=== PATIENT | female | born 1995 | race Caucasian/White ===

== ENCOUNTER 2019-01-19 10:22 | Outpatient (CLI) | payer MEDICAID | END 2019-01-19 12:10 | disposition home or self-care (01) | LOC: OBT 10:22 → L-D 10:22 → OBT 12:10 | DX: O48.0 Post-term pregnancy (principal); Z3A.40 40 weeks gestation of pregnancy | CPT/HCPCS: 76815; 76818 ==

== ENCOUNTER 2019-01-22 11:09 | Inpatient (IN) | payer MEDICAID ==
[2019-01-22] MEDS ORDERED: BUTORPHANOL 2 MG INJ IV (18:00)
[2019-01-22] MEDS ORDERED: OXYCODONE/ASPIRIN (4.88/325) TAB PO (18:00)
[2019-01-22] MEDS ORDERED: CARBOPROST 250 MCG INJ IM (18:00)
[2019-01-22] MEDS ORDERED: IBUPROFEN 600 MG TAB PO (18:00)
[2019-01-22] MEDS ORDERED: MISOPROSTOL 200 MCG TAB PR (18:00)
[2019-01-22] MEDS ORDERED: METHYLERGONOVINE 0.2 MG INJ IM (18:00)
[2019-01-22] MEDS ORDERED: OXYTOCIN 30 UNITS/LR 500 ML IV ×3 (18:00)
[2019-01-22] MEDS ORDERED: LIDOCAINE 1% (MPF) 30 ML INJ INJ (18:00)
[2019-01-22] MEDS: LACTATED RINGER'S 1,000 ML IV (19:23)
[2019-01-22 19:53] LABS: ADD MAN DIFF? NO
[2019-01-22 19:56] LABS: WHITE BLOOD COUNT 8.3 10^3/ul (4.8-10.8)
[2019-01-22 19:56] LABS: BASOPHILS % 0.2 % (0.0-2.0); EOSINOPHILS % 0.5 % (0.0-7.0); HEMATOCRIT 35.7 % (37.0-47.0); HEMOGLOBIN 11.7 g/dl (12.0-16.0); LYMPHOCYTES # 1.5 10^3/ul (0.8-2.9); LYMPHOCYTES % 18.2 % (15.0-51.0); MEAN CORPUSCULAR HEMOGLOBIN 29.9 pg (29.0-33.0); MEAN CORPUSCULAR HGB CONC 32.8 g/dl (32.0-37.0); MEAN CORPUSCULAR VOLUME 91.3 fl (82.0-101.0); MEAN PLATELET VOLUME 10.7 fl (7.4-10.4); MONOCYTE # 0.5 10^3/ul (0.3-0.9); MONOCYTES % 6.5 % (0.0-11.0); NEUTROPHILS % 72.4 % (39.0-77.0); PLATELET COUNT 262 10^3/UL (140-415); RED BLOOD COUNT 3.91 10^6/ul (4.20-5.40); RED CELL DISTRIBUTION WIDTH 13.7 % (11.5-14.5)
[2019-01-22 20:15] LABS: INR 0.92; PARTIAL THROMBOPLASTIN TIME 28.5 Sec (23.0-35.0); PROTIME 12.5 Sec (11.9-14.9)
[2019-01-22] MEDS: MISOPROSTOL 50 MCG CAPSULE PO (21:44)
[2019-01-23] MEDS: LACTATED RINGER'S 1,000 ML IV ×3 (01:53→17:31)
[2019-01-23] MEDS: MISOPROSTOL 50 MCG CAPSULE PO ×4 (01:53→21:15)
[2019-01-23] MEDS ORDERED: ACETAMINOPHEN 325 MG TAB PO (03:00)
[2019-01-23 16:33] LABS: RAPID PLASMA REAGIN NONREACTIVE (NR)
[2019-01-24] MEDS: BUTORPHANOL 2 MG INJ IV (00:45)
[2019-01-24] MEDS: LACTATED RINGER'S 1,000 ML IV ×4 (00:45→20:40)
[2019-01-24] MEDS: MISOPROSTOL 50 MCG CAPSULE PO (01:56)
[2019-01-24] MEDS ORDERED: FENTAnyl 2MCG/ML-ROPIV 0.2% 100 ML (07:09)
[2019-01-24] MEDS ORDERED: NALOXONE (0.4 MG/ML) INJ IV (07:30)
[2019-01-24] MEDS ORDERED: OXYTOCIN 30 UNITS/LR 500 ML IV (07:30)
[2019-01-24] MEDS ORDERED: DIPHENHYDRAMINE 50 MG INJ IV (07:30)
[2019-01-24] MEDS: FENTAnyl 2MCG/ML-ROPIV 0.2% 100 ML BAG EPI ×4 (08:20→23:06)
[2019-01-24] MEDS: ONDANSETRON 4 MG INJ IV ×2 (08:24→16:11)
[2019-01-24] MEDS: OXYTOCIN 30 UNITS/LR 500 ML IV (10:33)
[2019-01-24 12:54] LABS: HEPATITIS B SURFACE ANTIGEN NEGATIVE (NEGATIVE)
[2019-01-24] MEDS: AMPICILLIN 2 GM/NS (PMX) 100 ML IVPB (15:36)
[2019-01-24] MEDS: AMPICILLIN 1 GM/NS (PMX) 50 ML IVPB ×2 (19:33→23:44)
[2019-01-25] MEDS: FENTAnyl 2MCG/ML-ROPIV 0.2% 100 ML BAG EPI ×2 (03:09→07:33)
[2019-01-25] MEDS: AMPICILLIN 1 GM/NS (PMX) 50 ML IVPB ×2 (03:33→07:40)
[2019-01-25] MEDS: LACTATED RINGER'S 1,000 ML IV ×2 (06:00→14:59)
[2019-01-25] MEDS ORDERED: TERBUTALINE 1 ML (08:42)
[2019-01-25] MEDS: TERBUTALINE 1 MG/ML INJ SC (08:43)
[2019-01-25] MEDS ORDERED: MISOPROSTOL 200 MCG TAB PR ×2 (09:00→14:00)
[2019-01-25] MEDS ORDERED: CEFAZOLIN 2 GM/50 ML (PMX) 50 ML IVPB ×2 (09:00)
[2019-01-25] MEDS ORDERED: OXYTOCIN 30 UNITS/LR 500 ML BAG IV (09:00)
[2019-01-25] MEDS ORDERED: AZITHROMYCIN 500MG/NS (PMX) 250 ML IV (09:00)
[2019-01-25] MEDS ORDERED: METHYLERGONOVINE 0.2 MG INJ IM ×2 (09:00→14:00)
[2019-01-25] MEDS ORDERED: OXYTOCIN 30 UNITS/LR 500 ML IV ×3 (09:00→14:00)
[2019-01-25] MEDS ORDERED: CARBOPROST 250 MCG INJ IM ×3 (09:00→14:00)
[2019-01-25] MEDS ORDERED: ROPIVACAINE 0.5 % 30 ML VIAL (09:09)
[2019-01-25] MEDS ORDERED: OXYTOCIN 10 UNIT INJ (09:26)
[2019-01-25] MEDS: MINERAL OIL LIGHT 10 ML VIAL TOP (09:27)
[2019-01-25] MEDS: CITRIC ACID/NA CITRATE 30 ML CUP PO (09:30)
[2019-01-25] MEDS: ONDANSETRON 4 MG INJ IV (09:30)
[2019-01-25] MEDS ORDERED: AZITHROMYCIN 500MG/NS (PMX) 250 ML IVPB (09:30)
[2019-01-25] MEDS ORDERED: DEXAMETHASONE 4 MG/ML 1 ML INJ (09:35)
[2019-01-25] MEDS ORDERED: METOCLOPRAMIDE 10 MG INJ (09:35)
[2019-01-25] MEDS ORDERED: ONDANSETRON 4 MG INJ (09:35)
[2019-01-25] MEDS ORDERED: PHENYLephrine 10 MG INJ (09:36)
[2019-01-25] MEDS ORDERED: KETOROLAC 30 MG INJ (09:36)
[2019-01-25] MEDS ORDERED: PHENYLephrine (100 MCG/ML) 10ML SYG (09:36)
[2019-01-25] MEDS ORDERED: MEPERIDINE 100 MG INJ (09:37)
[2019-01-25 09:53] LABS: CBV COHb 1.7 %; CBV Oxygen Sat 62.1 mmHG; CBV Total Hemglobin 17.6 g/dl; Cord Blood Venous AADO2 59.3 mmHg; Cord Blood Venous pO2 39.3 mmHG (15.0-45.0); Fraction OxyHgb Cord Venous 60.4 %; MODE ROOM AIR; Sample Type CBV; Site CORD
[2019-01-25] MEDS: MISOPROSTOL 200 MCG TAB PR (10:29)
[2019-01-25] MEDS ORDERED: LANOLIN HPA 1 PKT TOP ×2 (10:30→14:00)
[2019-01-25] MEDS ORDERED: HYDROmorphONE 0.5 MG/0.5 ML SYG IV ×2 (10:30)
[2019-01-25] MEDS ORDERED: HYDROCODONE/APAP (5/325) TAB PO ×3 (10:30→14:00)
[2019-01-25] MEDS ORDERED: morphine 2 MG INJ IV ×2 (10:30)
[2019-01-25] MEDS ORDERED: DIPHENHYDRAMINE 50 MG INJ IV (10:30)
[2019-01-25] MEDS ORDERED: NALOXONE (0.4 MG/ML) INJ IV (10:30)
[2019-01-25] MEDS ORDERED: NALBUPHINE HCL (10 MG/1 ML) INJ IV (10:30)
[2019-01-25] MEDS ORDERED: ACETAMINOPHEN 500 MG TAB PO (10:30)
[2019-01-25] MEDS ORDERED: ONDANSETRON 4 MG INJ IV (10:30)
[2019-01-25] MEDS ORDERED: NACL 0.9% 3 ML SYG IV (10:30)
[2019-01-25] MEDS ORDERED: IBUPROFEN 600 MG TAB PO (12:00)
[2019-01-25] MEDS: OXYTOCIN 30 UNITS/LR 500 ML IV (12:48)
[2019-01-25] MEDS ORDERED: NA PHOSPHATE/BIPHOS 133 ML ENEMA PR (14:00)
[2019-01-25] MEDS ORDERED: IBUPROFEN 800 MG TAB PO (14:00)
[2019-01-25] MEDS ORDERED: OXYCODONE/ACETAMINOPHEN (5/325) TAB PO (14:00)
[2019-01-25] MEDS: MEASLES,MUMPS,RUBELLA VACCINE INJ SC* (14:58)
[2019-01-25] MEDS: CEFAZOLIN 2 GM/50 ML (PMX) 50 ML IVPB ×2 (14:59→22:21)
[2019-01-25] MEDS: KETOROLAC 30 MG INJ IV (17:47)
[2019-01-25] MEDS: CLINDAMYCIN 300 MG CAP PO ×2 (17:47→23:59)
[2019-01-25] MEDS: SENNA/DOCUSATE NA (8.6MG/50MG) TAB PO (20:56)
[2019-01-26] MEDS: LACTATED RINGER'S 1,000 ML IV (01:08)
[2019-01-26] MEDS: CLINDAMYCIN 300 MG CAP PO ×4 (05:48→23:46)
[2019-01-26] MEDS: CEFAZOLIN 2 GM/50 ML (PMX) 50 ML IVPB (06:24)
[2019-01-26] MEDS: SENNA/DOCUSATE NA (8.6MG/50MG) TAB PO ×2 (08:59→22:27)
[2019-01-26] MEDS: DIPHTH/TET/ACEL PERTUSS (ADULT) 0.5 ML VIAL IM* (09:00)
[2019-01-26 09:02] LABS: ADD MAN DIFF? NO
[2019-01-26 09:07] LABS: WHITE BLOOD COUNT 10.9 10^3/ul (4.8-10.8)
[2019-01-26 09:07] LABS: BASOPHILS % 0.1 % (0.0-2.0); EOSINOPHILS % 0.2 % (0.0-7.0); HEMATOCRIT 27.3 % (37.0-47.0); LYMPHOCYTES # 1.2 10^3/ul (0.8-2.9); LYMPHOCYTES % 11.2 % (15.0-51.0); MEAN CORPUSCULAR HEMOGLOBIN 30.7 pg (29.0-33.0); MEAN CORPUSCULAR VOLUME 93.2 fl (82.0-101.0); MONOCYTE # 0.9 10^3/ul (0.3-0.9); MONOCYTES % 8.3 % (0.0-11.0); NEUTROPHIL # 8.6 10^3/ul (1.6-7.5); PLATELET COUNT 189 10^3/UL (140-415); RED BLOOD COUNT 2.93 10^6/ul (4.20-5.40)
[2019-01-26] MEDS: BISACODYL 10 MG SUPP PR (10:30)
[2019-01-26] MEDS: IBUPROFEN 800 MG TAB PO ×2 (14:13→22:27)
[2019-01-27] MEDS: CLINDAMYCIN 300 MG CAP PO ×4 (05:43→23:52)
[2019-01-27] MEDS: IBUPROFEN 800 MG TAB PO ×3 (05:43→21:31)
[2019-01-27] MEDS: SENNA/DOCUSATE NA (8.6MG/50MG) TAB PO ×2 (10:27→21:31)
[2019-01-28] MEDS: CLINDAMYCIN 300 MG CAP PO ×2 (05:33→11:28)
[2019-01-28] MEDS: IBUPROFEN 800 MG TAB PO (05:33)
[2019-01-28] MEDS ORDERED: DIPHTH/TET/ACEL PERTUSS (ADULT) 0.5 ML VIAL IM* (09:00)
[2019-01-28] MEDS ORDERED: MEASLES,MUMPS,RUBELLA VACCINE INJ SC* (09:00)
[2019-01-28] MEDS: SENNA/DOCUSATE NA (8.6MG/50MG) TAB PO (09:28)
== END 2019-01-28 15:06 | disposition home or self-care (01) | DRG 788 ==
LOC: OBT 11:09 → L-D 11:09 → PP1 01-25 13:18 → OBT 17:23 → L-D 17:23
PROVIDERS: Obstetrics & Gynecology
PROC: 3E0E7GC Introduction of Other Therapeutic Substance into Products of Conception, Via Natural or Artificial Opening (ICD-10-PCS; 2019-01-24)
PROC: 3E033VJ Introduction of Other Hormone into Peripheral Vein, Percutaneous Approach (ICD-10-PCS; 2019-01-24)
PROC: 10H07YZ Insertion of Other Device into Products of Conception, Via Natural or Artificial Opening (ICD-10-PCS; 2019-01-24)
PROC: 10H073Z Insertion of Monitoring Electrode into Products of Conception, Via Natural or Artificial Opening (ICD-10-PCS; 2019-01-24)
PROC: 10D00Z1 Extraction of Products of Conception, Low, Open Approach (ICD-10-PCS; principal; 2019-01-25)
DX: O48.0 Post-term pregnancy (principal); O76 Abnormality in fetal heart rate and rhythm complicating labor and delivery; O32.3XX0 Maternal care for face, brow and chin presentation, not applicable or unspecified; O62.1 Secondary uterine inertia; O42.92 Full-term premature rupture of membranes, unspecified as to length of time between rupture and onset of labor; Z3A.40 40 weeks gestation of pregnancy; Z37.0 Single live birth
CPT/HCPCS: 36415; 62322; 76815; 76818; 82803; 85025; 85610; 85730; 86592; 86850; 86900; 86901; 87340; 88307; 99464